=== PATIENT | male | born 1955 | race African-American/Black ===

== ENCOUNTER 2023-09-12 13:59 | Emergency (ER) | payer MEDICARE ==
[~2023-09-12] VITALS: Ht 180.3 cm; Wt 86.0 kg
[2023-09-12 14:03] VITALS: O2SAT 100
[2023-09-12 15:07] LABS: BASOPHILS % 0.4 % (0.0-2.0); DIFFERENTIAL COMMENT 0; EOSINOPHILS % 0.5 % (0.0-5.0); HEMATOCRIT. 37.4 % (42.0-52.0); LYMPHOCYTES % 36.7 % (20.0-50.0); MEAN CORPUSCULAR HEMOGLOBIN 22.7 pg (28.0-32.0); MEAN CORPUSCULAR VOLUME 70.9 fL (80.0-94.0); MEAN PLATELET VOLUME 8.4 fl (7.4-10.4); MONOCYTES % 5.8 % (2.0-8.0); NEUTROPHILS % 56.6 % (40.0-76.0); PLATELET 232 x1000/uL (130-400); RED BLOOD CELL COUNT 5.28 mill/uL (4.7-6.1); RED CELL DISTRIBUTION WIDTH 15.2 % (11.6-14.6); WHITE BLOOD COUNT 4.7 x1000/uL (4.5-11.0)
[2023-09-12] MEDS ORDERED: ACETAMINOPHEN 325MG TABLET PO ONE (15:15)
[2023-09-12 15:17] LABS: PROTHROMBIN TIME 10.9 sec (9.6-11.0)
[2023-09-12 15:21] LABS: ALANINE AMINOTRANSFERASE 18 IU/L (10-49); ASPARTATE AMINOTRANSFERASE 15 IU/L (<34); BILIRUBIN TOTAL 0.4 mg/dL (0.1-1.0); CALCIUM 9.1 mg/dL (8.7-10.4); CARBON DIOXIDE 27 mEq/L (21-32); CHLORIDE 105 mEq/L (98-107); CREATININE 0.8 mg/dL (0.6-1.3); ETHANOL BLOOD < 10 mg/dL (<10); GLUCOSE 232 mg/dL (70-105); POTASSIUM 3.6 mEq/L (3.5-5.1); PROTEIN TOTAL 6.8 g/dL (6.0-8.3); SODIUM 138 mEq/L (136-145); UREA NITROGEN BLOOD 9 mg/dL (9-23)
[2023-09-12 18:58] VITALS: BP 157/86; PULSE 82; RESP 18; TEMP 98
== END 2023-09-12 19:17 | disposition home or self-care (01) ==
LOC: ER 13:59
DX: R51.9 Headache, unspecified (principal); M25.552 Pain in left hip; E11.9 Type 2 diabetes mellitus without complications; Z98.890 Other specified postprocedural states; V99.XXXA Unspecified transport accident, initial encounter; Y93.89 Activity, other specified; Y92.89 Other specified places as the place of occurrence of the external cause; Y99.8 Other external cause status
CPT/HCPCS: 36415; 71045; 71260; 74177; 76705; 80053; 80320; 85025; 93880; 99285; G0480